=== PATIENT | female | born 1985 | race Caucasian/White ===

== ENCOUNTER 2017-08-02 20:11 | Inpatient (IN) | payer OTHER ==
[2017-08-02] MEDS ORDERED: Oxytocin in LR* 20 UNITS/1,000 ML BAG IVPB ONE (20:54)
[2017-08-02] MEDS ORDERED: Oxytocin in LR* 20 UNITS/1,000 ML BAG IVPB SCH (21:00)
[2017-08-02 21:26] LABS: ABS Basophils 0 10^3/ul (0-0.2); ABS Eosinophils 0.1 10^3/ul (0-0.6); ABS Lymphocytes 2.2 10^3/ul (1.0-4.8); ABS Monocytes 0.6 10^3/ul (0-0.8); ABS Neutrophils 5.7 10^3/ul (1.5-7.7); ABS Nucleated RBC 0 10^3/ul; Eosinophil % 0.6 % (0-6); Hematocrit 31 % (35-47); Hemoglobin 10.8 g/dl (12.0-16.0); Lymphocyte % 25.8 % (25-47); Mean Corpuscular HGB Conc 34 g/dl (31-36); Mean Corpuscular Hemoglobin 31 pg (27-31); Mean Corpuscular Volume 89 fL (80-97); Mean Platelet Volume 8.2 um3 (7.4-10.4); Nucleated Red Blood Cells % 0; Platelet Count 229 10^3/ul (150-450); Red Blood Count 3.54 10^6/ul (4.0-5.4); Red Cell Distribution Width 14 % (10.5-15); White Blood Count 8.6 10^3/ul (3.5-10.8)
[2017-08-03] MEDS ORDERED: OBEPIDURAL* 250 ML EPIDURAL ONE (02:11)
[2017-08-03] MEDS ORDERED: Famotidine TAB* 20 MG PO PRN (02:57)
[2017-08-03] MEDS ORDERED: Phenylephrine IV* 40 MCG/ML 10 ML SYRINGE IV PUSH PRN ×2 (02:57)
[2017-08-03] MEDS ORDERED: EPHEDrine (Pressors)* 50 MG/ML VIAL IV PUSH PRN ×2 (02:57)
[2017-08-03] MEDS ORDERED: Sodium Citrate/Citric Acid* 15 ML UDC PO PRN (02:57)
[2017-08-03] MEDS ORDERED: OBEPIDURAL* 250 ML EPIDURAL SCH (03:00)
[2017-08-03] MEDS ORDERED: Glycerin ADULT SUPP PR PRN (04:06)
[2017-08-03] MEDS ORDERED: Acetaminophen TAB* 325 MG PO PRN (04:06)
[2017-08-03] MEDS ORDERED: Dibucaine 1% 28.35 GM TUBE PR PRN (04:06)
[2017-08-03] MEDS ORDERED: ceFAZolin 2 GM PREMIX (*) 2 GM/50 ML BAG IVPB ONE (04:07)
[2017-08-03] MEDS ORDERED: Oxytocin in LR* 20 UNITS/1,000 ML BAG IVPB SCH (05:00)
[2017-08-03] MEDS: Prenatal Vitamin TAB PO SCH (08:08)
[2017-08-03] MEDS: Docusate CAP* 100 MG PO SCH ×3 (08:08→19:59)
[2017-08-03] MEDS ORDERED: Simethicone TAB* 80 MG TAB.CHEW PO SCH (08:30)
[2017-08-03] MEDS: Ibuprofen TAB* 600 MG PO PRN ×2 (14:19→19:59)
[2017-08-04] MEDS: Ibuprofen TAB* 600 MG PO PRN ×3 (03:32→20:19)
[2017-08-04 07:10] LABS: ABS Basophils 0 10^3/ul (0-0.2); ABS Eosinophils 0.1 10^3/ul (0-0.6); ABS Lymphocytes 2.4 10^3/ul (1.0-4.8); ABS Monocytes 0.6 10^3/ul (0-0.8); ABS Neutrophils 5.1 10^3/ul (1.5-7.7); ABS Nucleated RBC 0 10^3/ul; Eosinophil % 1.1 % (0-6); Hematocrit 25 % (35-47); Hemoglobin 8.4 g/dl (12.0-16.0); Lymphocyte % 29.2 % (25-47); Mean Corpuscular HGB Conc 34 g/dl (31-36); Mean Corpuscular Hemoglobin 30 pg (27-31); Mean Corpuscular Volume 89 fL (80-97); Mean Platelet Volume 8.2 um3 (7.4-10.4); Nucleated Red Blood Cells % 0; Platelet Count 182 10^3/ul (150-450); Red Blood Count 2.79 10^6/ul (4.0-5.4); Red Cell Distribution Width 14 % (10.5-15); White Blood Count 8.2 10^3/ul (3.5-10.8)
[2017-08-04] MEDS: Docusate CAP* 100 MG PO SCH ×3 (10:04→20:19)
[2017-08-04] MEDS: Ferrous Gluconate TAB* 324 MG TAB PO SCH ×2 (10:05→20:19)
[2017-08-04] MEDS: Prenatal Vitamin TAB PO SCH (10:05)
[2017-08-04] MEDS: Witch Hazel PAD* JAR TOPICAL PRN (20:19)
[2017-08-04 20:21] VITALS: BP 108/67
[2017-08-05] MEDS: Ferrous Gluconate TAB* 324 MG TAB PO SCH (08:09)
[2017-08-05] MEDS: Prenatal Vitamin TAB PO SCH (08:09)
[2017-08-05] MEDS: Docusate CAP* 100 MG PO SCH (08:09)
[2017-08-05] MEDS: Ibuprofen TAB* 600 MG PO PRN (08:09)
[2017-08-05] MEDS: Witch Hazel PAD* JAR TOPICAL PRN (09:05)
== END 2017-08-05 09:25 | disposition home or self-care (01) | DRG 775 ==
LOC: MCHOBOUT 20:11 → MCHOB 21:26
PROVIDERS: ADMIT Obstetrics & Gynecology; ATTEND Obstetrics & Gynecology
PROC: 10E0XZZ Delivery of Products of Conception, External Approach (ICD-10-PCS; principal; 2017-08-03)
PROC: 0KQM0ZZ Repair Perineum Muscle, Open Approach (ICD-10-PCS; 2017-08-03)
PROC: 3E033VJ Introduction of Other Hormone into Peripheral Vein, Percutaneous Approach (ICD-10-PCS; 2017-08-03)
PROC: 10907ZC Drainage of Amniotic Fluid, Therapeutic from Products of Conception, Via Natural or Artificial Opening (ICD-10-PCS; 2017-08-03)
DX: O99.344 Other mental disorders complicating childbirth (principal); F41.9 Anxiety disorder, unspecified; O70.1 Second degree perineal laceration during delivery; O90.81 Anemia of the puerperium; D64.9 Anemia, unspecified; Z3A.40 40 weeks gestation of pregnancy; Z37.0 Single live birth
CPT/HCPCS: 36415; 85025; 86850; 86900; 86901; A9270-GY; J0690